=== PATIENT | male | born 1980 | race Caucasian/White ===

== ENCOUNTER 2018-05-26 10:11 | Outpatient (CLI) | payer SELFPAY ==
[2018-06-01 22:41] LABS: METANEPHRINE UG/G CRT 36 ug/g CRT (0-300)
== END 2018-05-26 10:15 ==
LOC: LAB 10:11
PROVIDERS: ATTEND Family Medicine
DX: I10 Essential (primary) hypertension (principal)
CPT/HCPCS: 81050; 83835

== ENCOUNTER 2018-06-08 12:40 | Outpatient (CLI) | payer BC ==
--- NOTE | 2018-06-08 15:32 | Diagnostic Imaging Report ---
MELIDA CRUZ [facility] [id number] [facility] [address] [place], [place]. [address] Report Submission Date: Jun 08, 2018 1:22:17 PM MEDICAID BILLING CLERK Patient Study Name: [email or web address] BOWLING Date: Jun 08, 2018 12:36:27 PM MEDICAID BILLING CLERK Modality Type: DX Gender: M Description: CHEST : 82 Institution: [facility] Physician: MELIDA CRUZ CHEST XRAY HISTORY: Congestion. Cough. FINDINGS: PA & lateral chest x-ray demonstrate lungs to be clear of focal infiltrates and expanded bilaterally. Cardiac silhouette and bony thorax are within normal limits. IMPRESSION: No active intrathoracic disease seen. Electronically signed on Jun 08, 2018 1:22:17 PM MEDICAID BILLING CLERK by: [facility]
== END 2018-06-08 12:50 ==
LOC: RAD 12:40
PROVIDERS: ATTEND Family Medicine
DX: J40 Bronchitis, not specified as acute or chronic (principal)
CPT/HCPCS: 71046